=== PATIENT | male | born 1965 | race Caucasian/White ===

== ENCOUNTER → 2016-09-08 | Outpatient (CLI) | payer BC ==
--- NOTE | 2016-09-08 08:14 | CT ---
EXAMINATION TYPE: CT brain wo con DATE OF EXAM: 09/08/2016 8:06 AM COMPARISON: NONE HISTORY: Left-sided headache CT DLP: 997.9 mGycm Automated exposure control for dose reduction was used. FINDINGS: There is no acute intracranial hemorrhage, mass effect, or midline shift identified. The ventricles and sulci are within normal limits in size. The globes are intact and the visualized sinuses are alexei ar. Changes of chronic sinusitis noted. The calcified 5 mm nodule within the fourth ventricle IMPRESSION: No acute intracranial hemorrhage, mass effect, or midline shift is seen. 5 mm calcified nodule fourth ventricle. Recommend follow-up MRI of brain.
== END | disposition home or self-care (01) ==
LOC: RADCTMAIN 07:23
PROVIDERS: ATTEND Family Medicine
DX: G93.89 Other specified disorders of brain (principal)
CPT/HCPCS: 70450

== ENCOUNTER → 2016-09-29 | Outpatient (CLI) | payer BC ==
--- NOTE | 2016-09-29 17:31 | MR ---
Brain MRI with and without contrast HISTORY: Brain neoplasm, headaches Correlation to CT brain 08 September 2016 Multiplanar multisequence and postcontrast images obtained through the brain following 20 cc MultiHan ce IV. The corpus callosum, pituitary, cervical medullary junction, cerebellopontine angles are unremarkable . There is no restricted diffusion to suggest subacute ischemia. 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 There is no abnormal enhancement following contrast administration. The focus fo llows cerebrospinal fluid signal on T1 and T2-weighted sequences, isointense on FLAIR sequence. Near imperceptible wall is present. Inflammatory changes present within the ethmoid air cells, bilateral m axillary and frontal sinus. 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 Foll ow-up could be performed to assess for stability. Correlate for sinusitis.
== END | disposition home or self-care (01) ==
LOC: RADMRIMAIN 15:45
PROVIDERS: ATTEND Family Medicine
DX: D49.6 Neoplasm of unspecified behavior of brain (principal)
CPT/HCPCS: 70553; A9577

== ENCOUNTER → 2024-01-04 | Outpatient (CLI) | payer BC ==
--- NOTE | 2024-01-04 08:33 | US ---
EXAMINATION TYPE: US abdomen complete DATE OF EXAM: 01/04/2024 COMPARISON: NONE CLINICAL INDICATION: Male, 58 years old with history of R10.11 RUQ PAIN; RUQ pain on and off for 2 ye ars TECHNIQUE: Multiple sonographic images of the abdomen are obtained. FINDINGS: EXAM MEASUREMENTS: Liver Length: 15.5 cm Gallbladder Wall: 0.2 cm CBD: 0.4 cm Spleen: 11.1 cm Right Kidney: 10.8 x 4.9 x 4.6 cm Left Kidney: 10.5 x 5.0 x 6.2 cm Pancreas: wnl Liver: wnl Gallbladder: wnl Evidence for sonographic Mcnamara's sign: no CBD: wnl Spleen: wnl Right Kidney: wnl Left Kidney: wnl Upper IVC: wnl Abd Aorta: wnl The liver is homogenous. The intrahepatic portion of the IVC and proximal abdominal aorta are within normal limits. There is no evidence of cholelithiasis. Common bile duct is unremarkable. The visu alized portions of the pancreas are homogenous. The spleen is unremarkable. Kidneys are symmetric a nd free of hydronephrosis. No renal lesions are seen. IMPRESSION: No evidence for acute process.
== END | disposition home or self-care (01) ==
LOC: RADUSWWP 07:05
PROVIDERS: ATTEND Family Medicine
DX: R10.11 Right upper quadrant pain (principal)
CPT/HCPCS: 76700